=== PATIENT | male | born 1960 | race Caucasian/White ===

== ENCOUNTER 2017-07-09 17:48 | Emergency (ER) | payer BC, OTHER ==
--- NOTE | 2017-07-09 18:16 | Emergency Department Record ---
History of Present Illness - General Chief complaint: Flank Pain Stated complaint: KIDNEY STONES Time Seen by Provider: 07/09/17 18:12 Source: Patient Mode of Arrival: Ambulatory Limitations: No limitations - History of Present Illness Initial comments: pt is having r flank pain that feels like previous kidney stone. it has been waxing and waning all day. dr flores is pts urologist. pt is also having nausea and vomiting MD Complaint: Other Onset/Timin -: Days(s) Location: Right flank Radiation: Other Quality: Sharp, Stabbing Consistency: Constant Other Reports: Nausea/vomiting - Related Data Home Medications Medication Instructions Recorded Confirmed Last Taken Gabapentin [Neurontin] 600 mg PO DAILY 07/09/17 07/09/17 07/09/17 Metformin HCl 1,000 mg PO DAILY 07/09/17 07/09/17 07/09/17 Allergies Allergy/AdvReac Type Severity Reaction Status Date / Time No Known Drug Allergies Allergy Verified 07/09/17 18:13 Travel Screening - Travel/Exposure Within Last 30 Days Have you traveled within the last 30 days?: No - Travel/Exposure Within Last Year Have you traveled outside the [place] in the last year?: No - Additonal Travel Details Have you been exposed to anyone with a communicable illness?: No Review of Systems Reviewed: No additional complaints except as noted below Constitutional: Reports: As per HPI. Denies: Chills, Fever, Malaise, Night sweats, Weakness, Weight change Eyes: Reports: As per HPI. Denies: Eye discharge, Eye pain, Photophobia, Vision change ENT: Reports: As per HPI. Denies: Congestion, Dental pain, Ear pain, Epistaxis , Hearing loss, Throat pain Respiratory: Reports: As per HPI. Denies: Cough, Dyspnea, Hemoptysis, Stridor, Wheezes Cardiovascular: Reports: As per HPI. Denies: Arrhythmia, Chest pain, Dyspnea on exertion, Edema, Murmurs, Orthopnea, Palpitations, Paroxysmal nocturnal dyspnea, Rheumatic Fever, Syncope Endocrine: Reports: As per HPI. Denies: Fatigue, Heat or cold intolerance, Polydipsia, Polyuria Gastrointestinal: Reports: As per HPI. Denies: Abdominal pain, Constipation, Diarrhea, Hematemesis, Hematochezia, Melena, Nausea, Vomiting Genitourinary: Reports: As per HPI. Denies: Dysuria, Frequency, Hematuria, Incontinence, Retention, Testicular pain, Testicular mass, Urgency Musculoskeletal: Reports: As per HPI. Denies: Arthralgia, Back pain, Gout, Joint swelling, Myalgia, Neck pain Skin: Reports: As per HPI. Denies: Bruising, Change in color, Change in hair/ nails, Lesions, Pruritus, Rash Neurological: Reports: As per HPI. Denies: Abnormal gait, Confusion, Headache, Numbness, Paresthesias, Seizure, Tingling, Tremors, Vertigo, Weakness Psychiatric: Reports: As per HPI. Denies: Anxiety, Auditory hallucinations, Depression, Homicidal thoughts, Suicidal thoughts, Visual hallucinations Hematological/Lymphatic: Reports: As per HPI. Denies: Anemia, Blood Clots, Easy bleeding, Easy bruising, Swollen glands Past Medical History - SOCIAL HISTORY Smoking Status: Never smoker Alcohol Use: Rare Drug Use: None - RESPIRATORY Hx Respiratory Disorders: Yes Hx Sleep Apnea: Yes Hx of CPAP: No - CARDIOVASCULAR Hx Cardio Disorders: No - NEURO Hx Neuro Disorders: Yes Hx Headaches: Yes Hx Neuropathy: Yes - GI Hx GI Disorders: Yes Hx Hiatal Hernia: Yes Hx of Polyps: Yes - Hx Genitourinary Disorders: Yes Hx Kidney Stones: Yes - ENDOCRINE Hx Endocrine Disorders: Yes Hx Diabetes: Yes - MUSCULOSKELETAL Hx Musculoskeletal Disorders: Yes - PSYCH Hx Psych Problems: No Family Medical History Any Significant Family History?: No Family Hx Comment (NOT TO BE USED IN PLACE OF ITEMS BELOW): Brain tumor. Hx Cancer: Mother Physical Exam - General General Appearance: Alert, Oriented x3, Cooperative, Mild distress - Head Head exam: Normal inspection - Eye Eye exam: Normal appearance, PERRL, EOMI Pupils: Normal accommodation - ENT ENT exam: Normal exam, Mucous membranes moist, Normal external ear exam, Normal orophraynx Ear exam: Normal external inspection. negative: External canal tenderness Nasal Exam: Normal inspection. negative: Discharge, Sinus tenderness Mouth exam: Normal external inspection, Tongue normal Teeth exam: Normal inspection. negative: Dental caries Throat exam: Normal inspection. negative: Tonsillar erythema, Tonsillar exudate - Neck Neck exam: Normal inspection, Full ROM. negative: Tenderness - Respiratory Respiratory exam: Normal lung sounds bilaterally. negative: Respiratory distress - Cardiovascular Cardiovascular Exam: Regular rate, Normal rhythm, Normal heart sounds - GI/Abdominal GI/Abdominal exam: Soft, Normal bowel sounds. negative: Tenderness - Rectal Rectal exam: Deferred - exam: Deferred - Extremities Extremities exam: Normal inspection, Full ROM, Normal capillary refill. negative: Tenderness - Back Back exam: Reports: Normal inspection, CVA tenderness (R), Full ROM. Denies: Muscle spasm, Rash noted, Tenderness - Neurological Neurological exam: Alert, CN II-XII intact, Normal gait, Oriented X3 - Psychiatric Psychiatric exam: Normal affect, Normal mood - Skin Skin exam: Dry, Intact, Normal color, Warm Course Vital Signs 07/09/17 17:51 Temperature 98.1 F Pulse Rate 85 Respiratory 16 Rate Pulse Ox 97 - Reevaluation(s) Reevaluation #1: 07/09/17 18:[address] nash Medical Decision Making - Lab Data Result diagrams: 07/09/17 18:10 07/09/17 18:10 Disposition Forms: Patient Portal Access Quality - Quality Measures Quality Measures: N/A - Blood Pressure Screening Does Patient Have Any of the Following: No Blood Pressure Classification: Hypertensive Reading Systolic Measurement: 166 Diastolic Measurement: 95 Screening for High Blood Pressure: < First Hypertensive BP, F/U Documented > [ G8950] First Hypertensive Follow-up Interventions: Follow-up with rescreen GT 1 day and LT 4 weeks.
[2017-07-09] MEDS ORDERED: 0.9 % SODIUM CHLORIDE 1,000 ML BAG IV ONE (18:35)
[2017-07-09] MEDS ORDERED: KETOROLAC 30 MG/ML VIAL IVP ONE (18:35)
[2017-07-09] MEDS ORDERED: ONDANSETRON HCL IV 4 MG/2 ML VIAL IV ONE (18:35)
[2017-07-09 18:49] LABS: BASO % 0.3 % (0-6); EOS % 1.7 % (0-6); HEMATOCRIT 46.7 % (42.0-52.0); HEMOGLOBIN 15.6 gm/dl (14.0-18.0); LYMPH % 32.6 % (16-45); MEAN CELL VOLUME 86.6 fl (81-97); MEAN CORPUSCULAR HEMOGLOBIN 28.9 pg (27-33); MEAN CORPUSCULAR HGB CONC 33.4 g/dl (32-36); MEAN PLATELET VOLUME 9.8 fl (7.4-10.4); MONO % 6.4 % (0-9); PLATELET COUNT 348 K/uL (130-400); RED BLOOD COUNT 5.39 M/uL (4.40-5.70); RED CELL DISTRIBUTION WIDTH 12.7 % (11.5-14.5); URINE APPEARANCE CLOUDY; URINE BILIRUBIN NEGATIVE (NEGATIVE); URINE BLOOD LARGE (NEGATIVE); URINE COLOR YELLOW; URINE GLUCOSE (UA) NEGATIVE (NEGATIVE); URINE KETONE NEGATIVE (NEGATIVE); URINE LEUKOCYTE ESTERASE NEGATIVE (NEGATIVE); URINE NITRITE NEGATIVE (NEGATIVE); URINE UROBILINOGEN 0.2 E.U./dL (0.20 - 1.00); WHITE BLOOD COUNT W/O DIFF 9.7 K/uL (4.2-12.2)
[2017-07-09 18:54] LABS: URINE EPITHELIAL CELLS NONE SEEN (FEW); URINE WBC NONE SEEN (0-2/hpf)
[2017-07-09 19:01] LABS: ANION GAP 11.2 (7-16); BLOOD UREA NITROGEN 16 mg/dL (9-20); CARBON DIOXIDE 23.8 mmol/L (22-30); EST GLOMERULAR FILTRATION RATE > 60 ml/min; GLUCOSE,RANDOM 130 mg/dL (70-110)
--- NOTE | 2017-07-09 19:39 | Emergency Department Record ---
History of Present Illness - General Chief complaint: Flank Pain Stated complaint: KIDNEY STONES Time Seen by Provider: 07/09/17 18:12 Source: Patient Mode of Arrival: Ambulatory Limitations: No limitations - History of Present Illness Onset/Timin -: Days(s) Location: Right flank Radiation: Other Quality: Sharp, Stabbing Consistency: Constant Other Reports: Nausea/vomiting - Related Data Home Medications Medication Instructions Recorded Confirmed Last Taken Gabapentin [Neurontin] 600 mg PO DAILY 07/09/17 07/09/17 07/09/17 Metformin HCl 1,000 mg PO DAILY 07/09/17 07/09/17 07/09/17 Previous Rx's Medication Instructions Recorded Hydrocodone/Acetaminophen [[place] 1 - 2 each PO QID #20 tablet 07/09/17 5-325 Tablet] Ondansetron [Zofran Odt] 4 mg SL .Q4-6H PRN #12 tab.rapdis 07/09/17 Tamsulosin HCl [Flomax] 0.4 mg PO DAILY #7 cap.er.24h 07/09/17 Allergies Allergy/AdvReac Type Severity Reaction Status Date / Time No Known Drug Allergies Allergy Verified 07/09/17 18:13 Travel Screening - Travel/Exposure Within Last 30 Days Have you traveled within the last 30 days?: No - Travel/Exposure Within Last Year Have you traveled outside the [place] in the last year?: No - Additonal Travel Details Have you been exposed to anyone with a communicable illness?: No Review of Systems Constitutional: Reports: As per HPI. Denies: Chills, Fever, Malaise, Night sweats, Weakness, Weight change Eyes: Reports: As per HPI. Denies: Eye discharge, Eye pain, Photophobia, Vision change ENT: Reports: As per HPI. Denies: Congestion, Dental pain, Ear pain, Epistaxis , Hearing loss, Throat pain Respiratory: Reports: As per HPI. Denies: Cough, Dyspnea, Hemoptysis, Stridor, Wheezes Cardiovascular: Reports: As per HPI. Denies: Arrhythmia, Chest pain, Dyspnea on exertion, Edema, Murmurs, Orthopnea, Palpitations, Paroxysmal nocturnal dyspnea, Rheumatic Fever, Syncope Endocrine: Reports: As per HPI. Denies: Fatigue, Heat or cold intolerance, Polydipsia, Polyuria Gastrointestinal: Reports: As per HPI. Denies: Abdominal pain, Constipation, Diarrhea, Hematemesis, Hematochezia, Melena, Nausea, Vomiting Genitourinary: Reports: As per HPI. Denies: Dysuria, Frequency, Hematuria, Incontinence, Retention, Testicular pain, Testicular mass, Urgency Musculoskeletal: Reports: As per HPI. Denies: Arthralgia, Back pain, Gout, Joint swelling, Myalgia, Neck pain Skin: Reports: As per HPI. Denies: Bruising, Change in color, Change in hair/ nails, Lesions, Pruritus, Rash Neurological: Reports: As per HPI. Denies: Abnormal gait, Confusion, Headache, Numbness, Paresthesias, Seizure, Tingling, Tremors, Vertigo, Weakness Psychiatric: Reports: As per HPI. Denies: Anxiety, Auditory hallucinations, Depression, Homicidal thoughts, Suicidal thoughts, Visual hallucinations Hematological/Lymphatic: Reports: As per HPI. Denies: Anemia, Blood Clots, Easy bleeding, Easy bruising, Swollen glands Past Medical History - SOCIAL HISTORY Smoking Status: Never smoker Alcohol Use: Rare Drug Use: None - RESPIRATORY Hx Respiratory Disorders: Yes Hx Sleep Apnea: Yes Hx of CPAP: No - CARDIOVASCULAR Hx Cardio Disorders: No - NEURO Hx Neuro Disorders: Yes Hx Headaches: Yes Hx Neuropathy: Yes - GI Hx GI Disorders: Yes Hx Hiatal Hernia: Yes Hx of Polyps: Yes - Hx Genitourinary Disorders: Yes Hx Kidney Stones: Yes - ENDOCRINE Hx Endocrine Disorders: Yes Hx Diabetes: Yes - MUSCULOSKELETAL Hx Musculoskeletal Disorders: Yes - PSYCH Hx Psych Problems: No Family Medical History Any Significant Family History?: No Family Hx Comment (NOT TO BE USED IN PLACE OF ITEMS BELOW): Brain tumor. Hx Cancer: Mother Physical Exam - General Limitations: No limitations Course Vital Signs 07/09/17 07/09/17 17:51 19:12 Temperature 98.1 F Pulse Rate 85 Pulse Rate [ 80 Pulse Ox Probe] Respiratory 16 16 Rate Blood Pressure 166/95 Blood Pressure 135/90 [Left Arm] Pulse Ox 97 96 - Reevaluation(s) Reevaluation #1: The patient is doing very well at this time. He is comfortable and feels OK going home. I did discuss the CT with him and the need to F/U with his Urologist in [place]. He has had multiple stones in the past and usually is able to pass them on his own. He understands the need to return for any increased pain, fever, or vomiting. 07/09/17 19:36 Medical Decision Making - Lab Data Result diagrams: 07/09/17 18:10 07/09/17 18:10 Lab Results 07/09/17 07/09/17 07/09/17 Range/Units 18:10 18:10 18:10 WBC 9.7 (4.2-12.2) K/uL RBC 5.39 (4.40-5.70) M/uL Hgb 15.6 (14.0-18.0) gm/dl Hct 46.7 (42.0-52.0) % MCV 86.6 (81-97) fl MCH 28.9 (27-33) pg MCHC 33.4 (32-36) g/dl RDW 12.7 (11.5-14.5) % Plt Count 348 (130-400) K/uL MPV 9.8 (7.4-10.4) fl Gran % 59.0 (47-80) % Lymphocytes % 32.6 (16-45) % Monocytes % 6.4 (0-9) % Eosinophils % 1.7 (0-6) % Basophils % 0.3 (0-6) % Sodium 139 (136-145) mmol/L Potassium 4.2 (3.5-5.1) mmol/L Chloride 104 (98-107) mmol/L Carbon Dioxide 23.8 (22-30) mmol/L Anion Gap 11.2 (7-16) BUN 16 (9-20) mg/dL Creatinine 1.0 (0.66-1.25) mg/dL Estimated GFR > 60 ml/min Random Glucose 130 H (70-110) mg/dL Calcium 9.3 (8.5-10.1) mg/dL Urine Color Yellow Urine Appearance Cloudy Urine pH 6.0 (5.0-8.0) Ur Specific [place] 1.025 (1.002-1.030) Urine Protein 30 mg/dl H (NEGATIVE) Urine Glucose (UA) Negative (NEGATIVE) Urine Ketones Negative (NEGATIVE) Urine Blood Large H (NEGATIVE) Urine Nitrite Negative (NEGATIVE) Urine Bilirubin Negative (NEGATIVE) Urine Urobilinogen 0.2 (0.20 - 1.00) E.U./dL Ur Leukocyte Esterase Negative (NEGATIVE) Urine RBC Too numerous to cnt (NONE SEEN) Urine WBC None seen (0-2/hpf) Ur Epithelial Cells None seen (FEW) - Radiology Data Radiology results: Report reviewed (CT: 5 mm stone at the junction of the R middle and distal thirds of the ureter with mild to mod hydro.) Disposition Disposition: Discharge Clinical Impression: Ureteral colic Disposition: Home, Self-Care Condition: (1) Good Instructions: Flank Pain (ED) Additional Instructions: Please take the [place] for pain and use the Zofran for nausea. Please call your Urologist as directed tomorrow for recheck. Return to the ER for any increased pain, fever, or vomiting. Prescriptions: Hydrocodone/Acetaminophen [[place] 5-325 Tablet] 1 - 2 each PO QID #20 tablet Ondansetron [Zofran Odt] 4 mg SL .Q4-6H PRN #12 tab.rapdis PRN Reason: Nausea Tamsulosin HCl [Flomax] 0.4 mg PO DAILY #7 cap.er.24h Forms: Patient Portal Access Time of Disposition: 19:38 Quality - Quality Measures Quality Measures: N/A - Blood Pressure Screening View Details: Yes Does Patient Have Any of the Following: No Blood Pressure Classification: Hypertensive Reading Systolic Measurement: 166 Diastolic Measurement: 95 Screening for High Blood Pressure: < Pre-Hypertensive BP, F/U Documented > [ G8950] Pre-Hypertensive Follow-up Interventions: Referral to alternative/primary care provider.
[2017-07-09] MEDS ORDERED: HYDROCODONE/APAP 5/325MG TABLET PO ONE (19:41)
--- NOTE | 2017-07-10 23:36 | CT SCAN REPORT ---
EXAM: CT SCAN ABDOMEN/PELVIS WO CONTRAST HISTORY: BILATERAL FLANK PAIN. HEMATURIA. KIDNEY STONE HISTORY. PRIOR LITHOTRIPSY. TECHNIQUE: Thin-collimation helical CT examination of the abdomen and pelvis is performed without oral or intravenous contrast administration for the express purpose of evaluating the renal collecting systems for obstructing calculi. Lack of oral and IV contrast utilization limits evaluation of the bowel and solid viscera, respectively. COMPARISON: None. FINDINGS: There is a small area of ground-glass opacity in the posteromedial right lung base measuring 2.8 x 1.9 cm. This is likely the result of compressive atelectasis from an adjacent endplate spur or less likely infiltrate. A neoplastic process is less likely. A tiny noncalcified nodule measuring 3 mm is present in the posterior right lung base and there is a small nodule in the anterolateral left lung base, as seen on image #6 measuring 4.5 mm in diameter. The lung bases are otherwise clear and there is no pleural or pericardial effusion. The heart is nonenlarged. A percutaneous gastric band is in place. The band appears normal in position and the tubing appears intact. There is diffuse decreased density of the liver relative to the spleen with a small area of sparing adjacent to the gallbladder fossa. This low density is consistent with steatosis. No suspicious focal hepatic lesion is seen. The pancreas, spleen, and adrenal glands are normal in appearance. There is minor atherosclerosis without aneurysmal dilatation of the abdominal aorta, nor iliac arteries. A retroaortic left renal vein is present. The kidneys are normal in size, position, and are smoothly marginated. There is no left nephrolithiasis demonstrated. There are a few nonobstructing calculi within the right kidney. That in the posterior mid kidney measures 2.5 mm in diameter. There is a cluster of three nonobstructing calculi in the lower pole of the right kidney, the largest of which measures 2 mm. No renal mass is identified. There is mild right hydroureteronephrosis down to the junction of the middle and distal thirds of the right ureter, where there is an obstructing calculus measuring 4.7 x 3.2 x 5.5 mm. The left renal collecting system is normal in appearance. No intrinsic urinary bladder abnormality is seen. No pelvic mass, lymphadenopathy, or free pelvic fluid is demonstrated. No gross bowel dilatation, nor bowel wall thickening is seen. The appendix is visualized and normal in appearance. The abdominal wall is intact. No lytic or blastic bone lesion is seen. There are degenerative changes scattered throughout the visualized spine with degenerative endplate changes, moderate to severe in degree, at the L4-L5 level. IMPRESSION: 1. OBSTRUCTING CALCULUS NEAR THE JUNCTION OF THE MIDDLE AND DISTAL THIRDS OF THE RIGHT URETER MEASURING 4.7 X 3.2 X 5.5 MM. THIS CAUSES MILD UPSTREAM HYDROURETERONEPHROSIS. 2. RIGHT NEPHROLITHIASIS. 3. HEPATIC STEATOSIS. 4. POST GASTRIC BAND PROCEDURE CHANGES. 5. NOT MENTIONED ABOVE IS APPARENT BORDERLINE TO MILD WALL THICKENING OF THE DISTAL ESOPHAGUS, LIKELY DUE TO INCOMPLETE DISTENTION, THOUGH A MUCOSAL ABNORMALITY IS NOT ENTIRELY EXCLUDED. 6. SINGLE SMALL NODULES IN EACH LUNG BASE ARE NONSPECIFIC BUT, IN THE ABSENCE OF A KNOWN MALIGNANT PRIMARY TUMOR AND ABSENCE OF SMOKING HISTORY, ARE LIKELY POSTINFLAMMATORY. 7. SMALL AREA OF GROUND-GLASS OPACITY IN THE MEDIAL RIGHT LUNG BASE LIKELY RELATING TO ATELECTASIS OR INFILTRATE RATHER THAN EARLY NEOPLASM. JOB NUMBER: [id number] [facility]
== END 2017-07-09 19:59 | disposition home or self-care (01) ==
LOC: ER 17:48
DX: N13.2 Hydronephrosis with renal and ureteral calculous obstruction (principal); R11.2 Nausea with vomiting, unspecified; Z87.442 Personal history of urinary calculi
CPT/HCPCS: 74176; 80048; 81001; 85025; 96374; 96375; 99284; J1885; J2405; J7030